=== PATIENT | female | born 1965 | race Caucasian/White ===

== ENCOUNTER 2017-04-30 22:25 | Observation (INO) | payer OTHER ==
[~2017-04-30 22:25] MED LIST: AMBI10TA PO; ATEN25TA PO; ATEN50TA PO; CELE40TA PO; CYCL1TAB29 PO; GABA300C5 PO; IBUP800T23 PO; LEVO200T4 PO; PERC5TAB12 PO; SYNT25TA PO
[2017-04-30 22:49] VITALS: BP 133/103; PULSE 60; RESP 17; TEMP 98.5; O2SAT 96
[2017-05-01 03:57] VITALS: BP 131/99; PULSE 63; RESP 19; TEMP 98.2; O2SAT 96
[2017-05-01] MEDS ORDERED: ONDANSETRON HCL 4 MG/2 ML VIAL IV PUSH PRN (04:00)
[2017-05-01] MEDS ORDERED: SODIUM CHLORIDE 0.9% FLUSH 10 ML FLUSH IV FLUSH PRN ×2 (04:00)
[2017-05-01] MEDS ORDERED: NITROGLYCERIN 0.4 MG SL 25 TABS/BTL SL PRN (04:00)
[2017-05-01] MEDS ORDERED: ACETAMINOPHEN 500 MG CPLT PO PRN (04:00)
[2017-05-01 08:00] VITALS: PULSE 72
[2017-05-01 08:07] VITALS: BP 139/80; PULSE 80; RESP 19; TEMP 98.4; O2SAT 97
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
[2017-05-01] MEDS ORDERED: ALPRAZolam 0.5 MG TAB PO ONE ×3 (08:45→15:00)
[2017-05-01] MEDS ORDERED: REGADENOSON INJ 0.4 MG/5 ML SYR ONE (11:21)
--- NOTE | 2017-05-01 13:25 | RADRPT ---
EXAM DATE/TIME: 05/01/2017 10:41 [facility] COMPARISON: No previous studies available for comparison. INDICATIONS : Substernal chest pain radiating to left arm. Angina. DOSE: 25.4 mCi Tc99m Myoview at stress. 8.5 mCi Tc99m Myoview at rest. 0.4 mg Lexiscan STRESS SYMPTOMS: Left side numbing. EJECTION FRACTION: > 70% MEDICAL HISTORY : Hypertension. SURGICAL HISTORY : Cholecystectomy. Hysterectomy. Tonsillectomy. ENCOUNTER: Initial ACUITY: 1 day PAIN SCALE: 6/10 LOCATION: Substernal chest TECHNIQUE: The patient underwent pharmacologic stress with infusion of prescribed dose. Continuous ECG tracing was monitored during stress. Gated SPECT imaging was performed after stress and conventional SPECT i maging was performed at rest. The examination was performed on a SPECT/CT scanner, both attenuation and non-corrected datasets were reviewed. FINDINGS: DISTRIBUTION: The maximum perfused segment at stress is in the septal wall. There is significant breast attenuatio n seen in the anterior and lateral projection images on review of the raw data images for both the st ress and rest datasets. The examination is based on review of both attenuation and non-attenuation c orrected images. PERFUSION STUDY: Regional variations perfusion between the septal, inferior, and lateral munoz are within 25%. There is approximately 30% reduction in activity in the apical segment of the anterior wall with questionab le redistribution on the resting scan. The apparent redistribution is discernible on both the attenu ation and non-attenuation corrected images. The severity of the perfusion defect is mild and the siz e is small. The summed stress score is 7. GATED STUDY: There is intact wall motion and thickening without hypokinetic or dyskinetic segments. CONCLUSION: 1. Indeterminate study with small area of mild redistribution involving the apical segment of the ant erior wall. The change in uptake could represent stress-induced ischemia or differing breast attenua tion artifact. 2. Intact wall motion in all myocardial segments with calculated ejection fraction of greater than 70 %. RISK CATEGORY: Intermediate (1-3% Annual Mortality Rate) Suraj Roman MD on May 01, 2017 at 13:16 Board Certified Radiologist. This report was verified electronically.
[2017-05-01 13:45] VITALS: O2SAT 97
[2017-05-01 14:46] LABS: BICARBONATE 27.9 MEQ/L (21.0-32.0); CALCIUM 8.9 MG/DL (8.5-10.1); CREATININE 1.06 MG/DL (0.50-1.00)
--- NOTE | 2017-05-01 14:54 | HHI.DCPOC ---
Discharge Care Plan Diagnosis: (1) Atypical chest pain (2) Chronic pain (3) Hypertension (4) Musculoskeletal chest pain (5) Type 2 diabetes mellitus (6) Situational stress (7) Hypothyroidism Goals to Promote Your Health * To prevent worsening of your condition and complications * To maintain your health at the optimal level Directions to Meet Your Goals Take your medications as prescribed Follow your dietary instruction Follow activity as directed Keep your appointments as scheduled Take your immunizations and boosters as scheduled If your symptoms worsen call your PCP, if no PCP go to Urgent Care Center or Emergency Room Smoking is Dangerous to Your Health. Avoid second hand smoke Call the 24-hour hour crisis hotline for domestic abuse at Megan Galloway May 01, 2017 14:54
--- NOTE | 2017-05-01 14:54 | HHI.DCPOC ---
Discharge Care Plan Diagnosis: (1) Atypical chest pain (2) Chronic pain (3) Hypertension (4) Musculoskeletal chest pain (5) Type 2 diabetes mellitus (6) Situational stress (7) Hypothyroidism Goals to Promote Your Health * To prevent worsening of your condition and complications * To maintain your health at the optimal level Directions to Meet Your Goals Take your medications as prescribed Follow your dietary instruction Follow activity as directed Keep your appointments as scheduled Take your immunizations and boosters as scheduled If your symptoms worsen call your PCP, if no PCP go to Urgent Care Center or Emergency Room Smoking is Dangerous to Your Health. Avoid second hand smoke Call the 24-hour hour crisis hotline for domestic abuse at Megan Galloway May 01, 2017 14:54
--- NOTE | 2017-05-01 14:54 | HHI.DCPOC ---
Discharge Care Plan Diagnosis: (1) Atypical chest pain (2) Chronic pain (3) Hypertension (4) Musculoskeletal chest pain (5) Type 2 diabetes mellitus (6) Situational stress (7) Hypothyroidism Goals to Promote Your Health * To prevent worsening of your condition and complications * To maintain your health at the optimal level Directions to Meet Your Goals Take your medications as prescribed Follow your dietary instruction Follow activity as directed Keep your appointments as scheduled Take your immunizations and boosters as scheduled If your symptoms worsen call your PCP, if no PCP go to Urgent Care Center or Emergency Room Smoking is Dangerous to Your Health. Avoid second hand smoke Call the 24-hour hour crisis hotline for domestic abuse at Megan Galloway May 01, 2017 14:54
[2017-05-01] MEDS ORDERED: LEVOTHYROXINE SODIUM 200 MCG TAB PO SCH (15:00)
[2017-05-01] MEDS ORDERED: MORPHINE SULFATE 4 MG/ML INJ IV PUSH ONE (15:00)
[2017-05-01] MEDS ORDERED: LEVOTHYROXINE SODIUM 25 MCG TAB PO SCH (15:00)
--- NOTE | 2017-05-01 16:13 | EKG ---
Date Performed: 04/30/2017 Time Performed: 23:41:17 PTAGE: 51 years EKG: Sinus rhythm NONSPECIFIC T-WAVE ABNORMALITY BORDERLINE ECG PREVIOUS TRACING : 01/12/1997 14.19 Since previous tracing, no significant change noted DOCTOR: Eduard Chahal Interpretating Date/Time 05/01/2017 16:12:44
--- NOTE | 2017-05-01 16:19 | TR ---
Date Performed: 05/01/2017 Time Performed: 11:22:19 DOCTOR: Eduard Chahal DRUG LIST: CLINICAL HISTORY: REASON FOR TEST: REASON FOR ENDING: OBSERVATION: CONCLUSION: Lexiscan stress test was performed under standard four minute protocol. Radionuclid e was injected one minute prior to ending the test. No electrocardiographic abormalities were present to suggest ischemia. Nuclear imaging and interpretation are pending. COMMENTS:
[2017-05-01] MEDS ORDERED: POLYETHYLENE GLYCOL 17 GM PKG PO ONE (16:30)
[2017-05-02] MEDS ORDERED: ASPIRIN 325 MG TAB PO SCH (09:00)
== END 2017-05-01 18:19 | disposition home or self-care (01) ==
LOC: NEDDLT 22:25 → NEPHCDU 22:35
PROVIDERS: ADMIT Internal Medicine Interventional Cardiology; ATTEND Internal Medicine Interventional Cardiology
DX: R07.89 Other chest pain (principal); I10 Essential (primary) hypertension; E78.5 Hyperlipidemia, unspecified; G89.29 Other chronic pain; E03.9 Hypothyroidism, unspecified; F41.9 Anxiety disorder, unspecified; E11.9 Type 2 diabetes mellitus without complications; R94.31 Abnormal electrocardiogram [ECG] [EKG]
CPT/HCPCS: 71010; 78452; 80048; 80053; 84443; 84484; 85025; 85610; 85730; 93005; 93017; 96374; A9502; G0378; J2060; J2270; J2405; J2785; 96375; 99281